=== PATIENT | male | born 1970 | race Caucasian/White ===

== ENCOUNTER 2017-05-25 19:02 | Emergency (ER) | payer OTHER ==
[2017-05-25] MEDS ORDERED: ASPIRIN 81 MG CHEWABLE CTB PO STA (19:18)
[2017-05-25] MEDS ORDERED: SODIUM CHLORIDE 0.9% FLUSH 10 ML SOL IV PRN (19:18)
[2017-05-25] MEDS ORDERED: NITROGLYCERIN 0.4 MG TAB SL PRN (19:18)
[2017-05-25] MEDS ORDERED: ASPIRIN 81 MG CHEWABLE CTB ONE (19:20)
[2017-05-25 19:25] LABS: BASOPHILS % (AUTO) 2 % (0-3); EOSINOPHILS % (AUTO) 3 % (0-9); HEMATOCRIT 48 % (39-53); MEAN CORPUSCULAR HGB CONC 36.8 gm/dl (32.0-36.0); MEAN CORPUSCULAR VOLUME 86 fL (80-100); MONOCYTES % (AUTO) 9.7 % (0-12); NEUTROPHILS % (AUTO) 62.1 % (37-80)
[2017-05-25] MEDS ORDERED: KETOROLAC TROMETHAMINE 30 MG/ML SOL IV ONE (19:31)
[2017-05-25] MEDS ORDERED: KETOROLAC TROMETHAMINE 30 MG/ML SOL ONE (19:32)
[2017-05-25 19:37] LABS: CALCIUM 9.2 mg/dl (8.5-10.1); GLOM FILT RATE 74 mL/min (>60); POTASSIUM 3.9 mMol/L (3.5-5.1); SODIUM 141 mMol/L (136-145)
[2017-05-25 20:08] VITALS: BP 153/85; PULSE 83; RESP 23; O2SAT 97
== END 2017-05-25 20:17 | disposition home or self-care (01) | DRG 313 ==
LOC: ED 19:02
DX: R07.89 Other chest pain (principal)
CPT/HCPCS: 71010; 80048; 82550; 84484; 85025; 85378; 85610; 85730; 93005; 96374; 99284; 99285; J1885

== ENCOUNTER 2018-03-21 12:55 | Outpatient (CLI) | payer OTHER ==
[2017-05-25 20:08] VITALS: O2SAT 97
== END 2018-03-21 12:56 | disposition home or self-care (01) | DRG 556 ==
LOC: CONVCARE 12:55
PROVIDERS: ATTEND Orthopaedic Surgery
DX: M25.562 Pain in left knee (principal); M17.12 Unilateral primary osteoarthritis, left knee
CPT/HCPCS: 73562